=== PATIENT | female | born 1990 | race Caucasian/White ===

== ENCOUNTER 2021-11-07 16:55 | Emergency (ER) | payer BC ==
[~2021-11-07] VITALS: Ht 157.5 cm; Wt 66.0 kg
[2021-11-07] MEDS ORDERED: FAMOTIDINE 20MG TABLET PO ONE (17:15)
[2021-11-07] MEDS ORDERED: DIPHENHYDRAMINE 25MG CAPSULE PO ONE ×2 (17:15→17:30)
[2021-11-07] MEDS ORDERED: PREDNISONE 20MG TABLET PO ONE (17:15)
[2021-11-07] MEDS ORDERED: P20 MT (18:24)
[2021-11-07 18:47] VITALS: BP 105/60
== END 2021-11-07 18:49 | disposition home or self-care (01) ==
LOC: ER 16:55
DX: T78.40XA Allergy, unspecified, initial encounter (principal); X58.XXXA Exposure to other specified factors, initial encounter
CPT/HCPCS: 99284; J7512; Q0163